=== PATIENT | male | born 1950 | race Caucasian/White ===

== ENCOUNTER 2017-04-28 14:50 | Emergency (ER) | payer OTHER ==
[~2017-04-28] VITALS: Ht 182.9 cm; Wt 81.6 kg
--- NOTE | 2017-04-28 17:53 | ED GI/GU/ABDOMINAL COMPLAINT ---
History of Present Illness General Chief Complaint: Male Genitourinary Problems Stated Complaint: HEMATURIA/PAIN Source: patient Exam Limitations: no limitations Vital Signs & Intake/Output Vital Signs & Intake/Output Vital Signs Date Time Temp Pulse Resp B/P B/P Pulse O2 O2 Flow FiO2 Mean Ox Delivery Rate 04/28 1838 Room Air 04/28 1752 98.0 84 22 187/97 100 Room Air 04/28 1502 98.1 110 16 163/105 98 Room Air Allergies Coded Allergies: No Known Allergies (04/23/17) Triage Note: 66 Y/O MALE C/O HEMATURIA. STATES HE WAS IN ED OVER THE WEEKEND DUE TO URINARY RETENTION, HAD CATHETER PLACED. CATHETER REMAINS IN PLACE HOWEVER PT REPORTS MULTIPLE EPISODES OF "PEEING MYSELF" THROUGHOUT THE DAY TODAY, DESPITE CATHETER IN PLACE. CONCERNED IT MOVED. PT CURRENTLY WITH URINE SOAKED PANTS. STATES URINE APPEARS BLOODY. C/O "EXTREME PAIN". UROLOGIST IS DR ANDERSON - CALLED UROLOGY OFFICE AND WAS ADVISED TO COME TO ED DUE TO DR ANDERSON BEING IN SURGERY ALL DAY TODAY. Triage Nurses Notes Reviewed? yes HPI: Patient presents for evaluation of worsening suprapubic abdominal pain and lack of urine output in his Leger catheter. Symptoms began gradually over the course of today resulting in a severe pressure-like sensation and tenderness in the suprapubic region. Patient noted hematuria in his urine prior to the drop off in urine output. Nothing seems to make his symptoms feel better at this point. He does have an enlarged prostate and has been discussing treatment options with his urologist, Dr. Anderson. (ALEX HESS,BRIAN Costa) Reconcile Medications Ascorbic Acid (Vitamin C) 1,000 MG TABLET 1 TAB PO DAILY SUPPLEMENT (Reported ) Beta-Carotene (Beta Carotene) 25,000 UNIT CAPSULE 1 CAP PO DAILY SUPPLEMENT ( Reported) Cholecalciferol (Vitamin D3) (Vitamin D) 1,000 UNIT TABLET 1 TAB PO DAILY SUPPLEMENT (Reported) Chromium Picolinate 200 MCG TABLET 1 TAB PO TID SUPPLEMENT (Reported) Multivits,Th W-Fe,Other Min (Pdzewzdn-Q-X With Minerals) 1 EACH TABLET 1 TAB PO TID SUPPLEMENT (Reported) [place]-3 Fatty Acids/Fish Oil (Fish Oil 1,200 MG Softgel) 360 MG-1,200 MG CAPSULE 1 CAP PO DAILY SUPPLEMENT (Reported) Saw [place] Fruit (Saw [place]) 450 MG CAPSULE 1 CAP PO BID SUPPLEMENT ( Reported) Tamsulosin HCl 0.4 MG CAP.ER.24H 1 CAP PO QHS (Reported) Vitamin A 10,000 UNIT CAPSULE 1 CAP PO DAILY SUPPLEMENT (Reported) Vitamin B Complex 1 EACH CAPSULE 1 CAP PO BID SUPPLEMENT (Reported) Vitamin E 400 UNIT CAPSULE 1 CAP PO DAILY SUPPLEMENT (Reported) ZINC 50 MG TABLET 1 TAB PO DAILY SUPPLEMENT (Reported) (SHANNAN REID MD) Past History Travel History Traveled to [place] past 21 day No Medical History Any Pertinent Medical History? see below for history Renal: urinary retention Other Medical Hx: Prostate enlargement Surgical History Surgical History: none Psychosocial History What is your primary language [place] Family History Hx Contributory? No (ALEX HESS,BRIAN Costa) Review of Systems Review of Systems Constitutional: Reports: no symptoms. EENTM: Reports: no symptoms. Respiratory: Reports: no symptoms. Cardiovascular: Reports: no symptoms. GI: Reports: no symptoms. Genitourinary: Reports: see HPI. Musculoskeletal: Reports: no symptoms. Skin: Reports: no symptoms. Neurological/Psychological: Reports: no symptoms. Hematologic/Endocrine: Reports: no symptoms. Immunologic/Allergic: Reports: no symptoms. All Other Systems: Reviewed and Negative (ALEX HESS,BRIAN Costa) Physical Exam Physical Exam Gastrointestinal: see below Comments: Gen.: Well-nourished, well-developed, no acute respiratory distress. Head: Normocephalic, atraumatic. Eyes: Normal inspection bilaterally Ears: Normal inspection bilaterally Nose: Normal inspection Throat/mouth : Moist mucosa Neck: Supple, full range of motion, no goiter Lungs: Quiet respirations Back: Normal range of motion Abdomen: Soft, suprapubic tenderness and fullness consistent with distended bladder, nondistended, normal bowel sounds Extremities: Normal range of motion grossly, equal radial pulses, no cyanosis clubbing or edema Neurologic: Cranial nerves grossly intact, speech is clear Skin: warm and dry Psychiatric: Calm, cooperative, no apparent delusions or hallucinations Core Measures ACS in differential dx? No Severe Sepsis Present: No Septic Shock Present: No (ALEX HESS,BRIAN Costa) Progress Differential Diagnosis: acute urinary retention due to Leger catheter malfunction Plan of Care: Orders Procedure Date/time Status CULTURE,URINE 04/28 1508 Active URINALYSIS 04/28 1508 Complete Current Medications Sig/Qasim Start time Last Medication Dose Stop Time Status Admin Aspirin 325 MG ONCE ONE 04/28 2115 UNVr (Aspirin) 04/28 2116 Laboratory Tests 04/28/17 1830: Urine Color YEL, Urine Clarity CLEAR, Urine pH 6.0, Ur Specific [place] >= 1.030 , Urine Protein 30 H, Urine Ketones NEG, Urine Nitrite NEG, Urine Bilirubin NEG , Urine Urobilinogen 0.2, Ur Leukocyte Esterase NEG, Ur Microscopic SEDIMENT EXAMINED, Urine RBC 15-25 H, Urine WBC 3-5 H, Urine Crystals RARE [place], Urine Bacteria RARE H, Urine Mucus RARE, Urine Hemoglobin LARGE H, Urine Glucose NEG Microbiology 04/28 183 URINE ROUT: Urine Culture - RECD Initial ED EKG: none Comments: Patient is likely clotted the drainage holes of his Leger. His nurse will attempt to free up the blockage by repositioning the catheter and irrigating. 04/28/2017 7:50:16 PM patient signed out to Dr. Reid at shift change person. (ALEX HESS,BRIAN Costa) Departure Departure Condition: Stable Clinical Impression Primary Impression: Obstructed Leger catheter Qualifiers: Encounter type: initial encounter Qualified Code: T83.091A - Other mechanical complication of indwelling urethral catheter, initial encounter Departure Forms: Customer Survey General Discharge Information (ALEX HESS,BRIAN Costa) Departure Time of Disposition: 2105 Disposition: HOME OR SELF CARE Referrals: THEO HESS,GOMEZ Kirby (PCP/Family) SOO ANDERSON MD (SHANNAN REID MD)
[2017-04-28] MEDS ORDERED: TAMSULOSIN HCL0.4 M1 PO (20:19)
[2017-04-28] MEDS ORDERED: VITAMIN A10000 UNIT PO (20:19)
[2017-04-28] MEDS ORDERED: VITAMIN B COMP1 EACH PO (20:20)
[2017-04-28] MEDS ORDERED: VITAMIN D1000 UNIT PO (20:20)
[2017-04-28] MEDS ORDERED: BETA CAROT25000 UNIT PO (20:20)
[2017-04-28] MEDS ORDERED: VITAMIN E400 UNI5 PO (20:21)
[2017-04-28] MEDS ORDERED: VITAMIN C1000 M4 PO (20:21)
[2017-04-28] MEDS ORDERED: SAW PALMETTO450 M1 PO (20:21)
[2017-04-28] MEDS ORDERED: CHROMIUM PICO200 MC2 PO (20:22)
[2017-04-28] MEDS ORDERED: ZINC50 M2 PO (20:22)
[2017-04-28] MEDS ORDERED: MULTILEX-T-M W1 EACH PO (20:22)
[2017-04-28] MEDS ORDERED: FISH OIL 1,2001 EAC4 PO (20:23)
[2017-04-28 21:38] VITALS: BP 165/87
[2017-05-03] MEDS ORDERED: CHROMIUM PIC1000 MCG PO (12:41)
== END 2017-04-28 21:46 ==
LOC: ERH 14:50
DX: T83.098A Other mechanical complication of other urinary catheter, initial encounter (principal)
CPT/HCPCS: 81001; 87086